=== PATIENT | female | born 1980 | race Caucasian/White ===

== ENCOUNTER 2024-01-09 08:37 | Emergency (ER) | payer OTHER, SELFPAY ==
[2024-01-09] VITALS (11 sets, daily range): BP systolic 142–151; BP diastolic 93–99; PULSE 74–83; TEMP 36.6; O2SAT 96–100; BMI 35.1
--- NOTE | 2024-01-09 08:44 | ECG_ITS ---
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
[2024-01-09 09:00] LABS: Basophils Absolute Auto 0.1 10^3/uL (0.0-0.1); Basophils Percent Auto 0.9 % (0.2-2.0); Eosinophils Absolute Auto 0.2 10^3/uL (0.0-0.7); Eosinophils Percent Auto 1.9 % (0.9-7.0); Hematocrit 37.8 % (36.0-48.0); Immature Granulocytes Abs Auto 0.03 10^3/uL (0.00-0.03); Immature Granulocytes Pct Auto 0.2 % (0.0-0.5); Lymphocytes Absolute Auto 1.9 10^3/uL (1.2-3.8); Lymphocytes Percent Auto 14.9 % (20.5-60.0); Mean Corpuscular HGB Conc 34.4 g/dL (29.9-35.2); Mean Corpuscular Hemoglobin 31.5 pg (26.7-34.0); Mean Corpuscular Volume 91.5 fL (81.0-99.0); Mean Platelet Volume 9.2 fL (9.5-13.5); Monocytes Absolute Auto 0.9 10^3/uL (0.3-0.8); Monocytes Percent Auto 7.1 % (1.7-12.0); Neutrophils Absolute Auto 9.5 10^3/uL (1.4-6.5); Platelet Count 322 10^3/uL (150-450); Red Blood Count 4.13 10^6/uL (4.20-5.40); Red Cell Distribution Width 12.2 % (11.0-15.0); White Blood Count 12.7 10^3/uL (4.0-11.0)
[2024-01-09 09:00] LABS: Bilirubin Urine NEGATIVE (NEGATIVE); Blood Urine NEGATIVE (NEGATIVE); Clarity Urine CLEAR (CLEAR); Color Urine YELLOW (YELLOW); Glucose Urine UA NEGATIVE (NEGATIVE); Ketones Urine NEGATIVE (NEGATIVE); Leukocyte Esterase Urine NEGATIVE (NEGATIVE); Nitrite Urine NEGATIVE (NEGATIVE); Protein Urine TRACE mg/dL (NEG/TRACE); Urobilinogen Urine 0.2 EU/dL (0.2-1.0); pH Urine 8.5 (5.0-9.0)
[2024-01-09 09:10] LABS: Magnesium 1.8 mg/dL (1.8-2.4)
[2024-01-09 09:11] LABS: Urine Microscopic Indicated NO
[2024-01-09 09:13] LABS: HCG Qualitative NEGATIVE (NEGATIVE)
[2024-01-09] MEDS: 0.9 % SODIUM CHLORIDE 1,000 ML 1000 ML IV (09:15)
[2024-01-09 09:16] LABS: Alanine Aminotransferase 31 U/L (14-59); Albumin Level 3.6 g/dL (3.4-5.0); Alkaline Phosphatase 49 U/L (46-116); Anion Gap 12.4; Aspartate Amino Transferase 16 U/L (15-37); BUN Creatinine Ratio 11.7; Bilirubin Total 0.5 mg/dL (0.2-1.0); Calcium 10.1 mg/dL (8.5-10.1); Carbon Dioxide 27.4 mmol/L (21.0-32.0); Chloride 104 mmol/L (98-107); Estimated GFR (African America >60 (>=60); Estimated GFR (Non-African Ame 58 (>=60); Globulin 3.5 g/dL; Glucose 85 mg/dL (74-106); Potassium 3.8 mmol/L (3.5-5.1); Sodium 140 mmol/L (136-145); Total Protein 7.1 g/dL (6.4-8.2)
--- NOTE | 2024-01-09 09:21 | ED.GENADUL1 ---
HPI HPI - General Adult General Chief complaint: Neuro Symptoms/Deficit Stated complaint: general weakness Time Seen by Provider: 01/09/24 08:44 Source: patient Mode of arrival: ambulance Limitations: no limitations History of Present Illness HPI narrative: The patient is coming to the ER with a complaint of an episode of numbness tingling in her fingers as well as his feet and the back of her head, that happened just an hour before arrival. The patient mentioned that she was throwing some doors and when she was getting out of the restaurant apparently she started having this numbness and tingling, since then she has been having those on and off, no chest pain no headache no nausea no vomiting no other complaints, the patient mentioned that she was started recently on Adipex almost few months ago for weight loss and she lost almost 10 to 20 pounds in the last 2-month. The patient denies any difficulty breathing coughing fever or any other concerns, she also mentioned that she have no complaint before this happened Related Data Home Medications ?Medication ?Instructions ?Recorded ?Confirmed levothyroxine 50 mcg tablet 50 mcg PO DAILY 01/09/24 01/09/24 phentermine 37.5 mg tablet 18.75 mg PO DAILY 01/09/24 01/09/24 (Adipex-P) Allergies Allergy/AdvReac Type Severity Reaction Status Date / Time No Known Drug Allergies Allergy Verified 01/09/24 08:43 Opioid HPI Opioid Management Most Recent Opioid Data: No Data to Display Review of Systems ROS Status of ROS 10 or more systems reviewed and unremarkable except as noted in history and below Exam Narrative Exam Narrative: Nurses notes and vital signs reviewed and patient is not hypoxic. General: Well-appearing and in no apparent distress. Skin: Warm, dry, no pallor noted. No rash. Head: Normocephalic, atraumatic. Neck: Supple, non-tender. Eye: Pupils are equal, round and EOMI. No scleral icterus. Ears, Nose, Mouth, and Throat: TM are clear, no nasal mucosal hypertrophy. Oral mucosa is moist, no posterior oropharynx erythema, uvula is mid-line Cardiovascular: Regular Rate and Rhythm without murmur, gallop or rub. Respiratory: No accessory muscle use or respiratory distress. Lungs are clear to auscultation, no wheezing, rales or rhonchi Chest Wall: no tenderness Back: No midline thoracic or lumbar vertebral tenderness. No CVA tenderness Musculoskeletal: normal ROM, no calf or popliteal tenderness, no lower extremity edema/swelling GI: Abdomen is soft, non-distended. Normal bowel sounds. No masses appreciated. No tenderness to palpation. No rebound, guarding, or rigidity noted. Neurological: A&O x4. No cranial nerve dysfunction observed. No truncal ataxia. Moves all extremities. Sensation intact. Psychiatric: Cooperative and interactive. Normal mood and affect. Constitutional Vital Signs, click to edit/add: Last Vital Signs Temp 97.9 F 01/09/24 08:39 Pulse 74 01/09/24 09:06 Resp 15 01/09/24 08:55 BP 146/93 H 01/09/24 09:06 Pulse Ox 100 01/09/24 08:39 O2 Del Method Room Air 01/09/24 08:57 Course Vital Signs Vital signs: Vital Signs Temperature 97.9 F 01/09/24 08:39 Pulse Rate 79 01/09/24 08:39 Respiratory Rate 16 01/09/24 08:39 Blood Pressure 147/95 H 01/09/24 08:39 Pulse Oximetry 100 01/09/24 08:39 Oxygen Delivery Method Room Air 01/09/24 08:39 Temperature 97.9 F 01/09/24 08:39 Pulse Rate 74 01/09/24 09:06 Respiratory Rate 15 01/09/24 08:55 Blood Pressure 146/93 H 01/09/24 09:06 Pulse Oximetry 100 01/09/24 08:39 Oxygen Delivery Method Room Air 01/09/24 08:57 Medical Decision Making [facility] Narrative Medical decision making narrative: The patient EKG showing sinus rhythm with a heart rate of [address] elevation or depression no arrhythmia CBC shows mild leukocytosis which could be reactive as there is no source of infection although the patient does have some lymphopenia there is a possible going for infection Orthostatics were not positive The patient's urinalysis showed no acute pathology Chemistry shows mild elevation in the creatinine The patient was provided IV fluid after which she was feeling much better and she was discharged home with continue hydration imaging to follow-up with her primary care doctor in case of this recurring symptoms of numbness and tingling of arms or legs the patient to address that with her primary care doctor at the side effect of Adipex The patient is to follow up with primary care physician in next 2-3 days or to return to the emergency department should any of the signs or symptoms worsen or new symptoms develop. The patient agrees with the following Diagnosis and Treatment plan and the patient will be discharged home. Lab Data Labs: Lab Results 01/09/24 01/09/24 Range/Units 08:45 08:55 WBC 12.7 H (4.0-11.0) 10^3/uL RBC 4.13 L (4.20-5.40) 10^6/uL Hgb 13.0 (12.0-16.0) g/dL Hct 37.8 (36.0-48.0) % MCV 91.5 (81.0-99.0) fL MCH 31.5 (26.7-34.0) pg MCHC 34.4 (29.9-35.2) g/dL RDW 12.2 (11.0-15.0) % Plt Count 322 (150-450) 10^3/uL MPV 9.2 L (9.5-13.5) fL Neut % (Auto) 75.0 (43.0-75.0) % Lymph % (Auto) 14.9 L (20.5-60.0) % [place] % (Auto) 7.1 (1.7-12.0) % Eos % (Auto) 1.9 (0.9-7.0) % Baso % (Auto) 0.9 (0.2-2.0) % Neut # (Auto) 9.5 H (1.4-6.5) 10^3/uL Lymph # (Auto) 1.9 (1.2-3.8) 10^3/uL [place] # (Auto) 0.9 H (0.3-0.8) 10^3/uL Eos # (Auto) 0.2 (0.0-0.7) 10^3/uL Baso # (Auto) 0.1 (0.0-0.1) 10^3/uL Abs Immat Gran (auto) 0.03 (0.00-0.03) 10^3/uL Imm/Tot Granulo (auto) 0.2 (0.0-0.5) % Sodium 140 (136-145) mmol/L Potassium 3.8 (3.5-5.1) mmol/L Chloride 104 (98-107) mmol/L Carbon Dioxide 27.4 (21.0-32.0) mmol/L Anion Gap 12.4 BUN 12.0 (7.0-18.0) mg/dL Creatinine 1.03 H (0.55-1.02) mg/dL Est GFR ( Amer) >60 (>=60) Est GFR (Non-Af Amer) 58 L (>=60) BUN/Creatinine Ratio 11.7 Glucose 85 (74-106) mg/dL Calcium 10.1 (8.5-10.1) mg/dL Magnesium 1.8 (1.8-2.4) mg/dL Total Bilirubin 0.5 (0.2-1.0) mg/dL AST 16 (15-37) U/L ALT 31 (14-59) U/L Alkaline Phosphatase 49 (46-116) U/L Troponin I High Sens 6.0 (4.0-51.3) pg/mL Total Protein 7.1 (6.4-8.2) g/dL Albumin 3.6 (3.4-5.0) g/dL Globulin 3.5 g/dL Albumin/Globulin Ratio 1.0 Serum HCG, Qual Negative (NEGATIVE) Urine Color Yellow (YELLOW) Urine Clarity Clear (CLEAR) Urine pH 8.5 (5.0-9.0) Ur Specific [place] 1.020 (1.005-1.025) Urine Protein Trace (NEG/TRACE) mg/dL Urine Glucose (UA) Negative (NEGATIVE) mg/dL Urine Ketones Negative (NEGATIVE) mg/dL Urine Occult Blood Negative (NEGATIVE) Urine Nitrite Negative (NEGATIVE) Urine Bilirubin Negative (NEGATIVE) Urine Urobilinogen 0.2 (0.2-1.0) EU/dL Ur Leukocyte Esterase Negative (NEGATIVE) Discharge Plan Discharge Stand Alone Forms: Portal Instructions Chief Complaint: Neuro Symptoms/Deficit Clinical Impression: Acute dehydration, Dizziness Patient Disposition: Home, Self-Care Time of Disposition Decision: 10:44 Condition: Good Prescriptions / Home Meds: No Action levothyroxine 50 mcg tablet 50 mcg PO DAILY phentermine [Adipex-P] 37.5 mg tablet 18.75 mg PO DAILY Rx Instructions: must administer 30 minutes before or 1-2 hours after breakfast Print Language: Peruvian Instructions: Dehydration (DC) Referrals: LAUREN EPPS [Primary Care Provider] - 1 week
--- NOTE | 2024-01-09 15:50 | ECG_ITS ---
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
== END 2024-01-09 10:55 | disposition home or self-care (01) ==
PROVIDERS: Emergency Provider Emergency Medicine; PCP Nurse Practitioner
DX: E86.0 Dehydration (principal); R42 Dizziness and giddiness
CPT/HCPCS: 36415; 80053; 81003; 83735; 84484; 84703; 85025; 93005; 96360; 99284